=== PATIENT | female | born 1990 | race Two or more races ===

== ENCOUNTER → 2019-07-23 | Outpatient (REF) | payer OTHER | LOC: M SFHCWAGY 11:47 | PROVIDERS: ATTEND Advanced Practice Midwife | DX: Z12.4 Encounter for screening for malignant neoplasm of cervix (principal) ==

== ENCOUNTER 2021-03-31 22:38 | Emergency (ER) | payer OTHER ==
[~2021-03-31] VITALS: Ht 154.9 cm; Wt 45.9 kg
[2021-03-31 22:39] VITALS: BP 129/66
[2021-03-31] MEDS ORDERED: FLUTISP NARES (23:25)
[2021-03-31] MEDS ORDERED: NEXI40CA PO (23:25)
[2021-03-31] MEDS ORDERED: BREO1INH PO (23:25)
[2021-03-31] MEDS ORDERED: NORG1TAB33 PO (23:25)
--- NOTE | 2021-04-01 10:07 | ECGEPIP ---
[facility] - ED Test Date: 2021-03-31 Pat Name: OLIVIA SANCHEZ Department: Room: - Gender: Female Summer Internship: DEISI : 1990 Requested By: PHIL Bird Order Number: [id number] Reading MD: Felipa Lundberg Measurements Intervals [place] Rate: 77 P: 61 HI: 132 QRS: 72 QRSD: 74 T: 43 QT: 376 QTc: 425 Interpretive Statements Normal sinus rhythm NSTTW abnormalities No prior Electronically Signed on 04-01-2021 10:07:38 EDT by Felipa Lundberg
== END 2021-04-01 03:32 | disposition left against medical advice (07) ==
LOC: M ED 22:38
DX: Z53.29 Procedure and treatment not carried out because of patient's decision for other reasons (principal)